=== PATIENT | female | born 1985 | race Caucasian/White ===

== ENCOUNTER 2018-06-09 14:10 | Outpatient (CLI) | payer OTHER ==
--- NOTE | 2018-06-09 15:30 | RAD ---
PA AND LATERAL CHEST: History: Bronchitis. Cough. FINDINGS: Cardiomediastinum is normal. The lungs are well expanded and clear. The bony thorax is normal. IMPRESSION: Normal exam. POS: [facility]
== END 2018-06-09 14:11 | disposition home or self-care (01) ==
LOC: SCSRAD 14:10
PROVIDERS: ATTEND Family Medicine
DX: J20.9 Acute bronchitis, unspecified (principal)
CPT/HCPCS: 71046

== ENCOUNTER 2018-08-06 08:22 | Outpatient (CLI) | payer OTHER ==
--- NOTE | 2018-08-06 09:31 | RAD ---
PA AND LATERAL CHEST: History: Persistent cough. Comparison: 06-09-18 FINDINGS: Heart size and mediastinum within normal limits. The lungs are clear of infiltrates. No bony findings . IMPRESSION: No active intrathoracic disease. POS: [facility]
== END 2018-08-06 08:23 | disposition home or self-care (01) ==
LOC: SCSRAD 08:22
PROVIDERS: ATTEND Family Medicine
DX: R05 Cough (principal)
CPT/HCPCS: 71046

== ENCOUNTER 2019-01-06 10:48 | Outpatient (CLI) | payer OTHER ==
--- NOTE | 2019-01-06 11:17 | RAD ---
TWO VIEWS CHEST: History: Bronchitis, cough. Date: 01-06-19 Comparison: 08-06-19 FINDINGS: PA and lateral chest demonstrate the lungs to be well aerated. No evidence of active intrathoracic di sease seen. No evidence of effusions, pneumonia, or pneumothorax seen. IMPRESSION: Unremarkable two views chest. POS: [facility]
== END 2019-01-06 10:49 | disposition home or self-care (01) ==
LOC: SCSRAD 10:48
PROVIDERS: ATTEND Family Medicine
DX: J40 Bronchitis, not specified as acute or chronic (principal)
CPT/HCPCS: 71046

== ENCOUNTER 2019-12-02 11:12 | Outpatient (CLI) | payer OTHER ==
--- NOTE | 2019-12-02 12:36 | RAD ---
PA AND LATERAL CHEST: Date: 12/02/2019 HISTORY: Cough and wheezing. COMPARISON: 01/06/19 study. FINDINGS: Heart size and mediastinum are within normal limits. Lungs are clear of infiltrates. No significant b norma findings. IMPRESSION: No active intrathoracic disease. POS: [facility]
== END 2019-12-02 11:13 | disposition home or self-care (01) ==
LOC: SCSRAD 11:12
PROVIDERS: ATTEND Family Medicine
DX: J40 Bronchitis, not specified as acute or chronic (principal)
CPT/HCPCS: 71046

== ENCOUNTER 2020-04-05 12:32 | Outpatient (CLI) | payer OTHER ==
--- NOTE | 2020-04-05 15:26 | MRI ---
BRAIN MRI WITH AND WITHOUT CONTRAST: 04/05/20 COMPARISON: None. HISTORY: Migraine with aura. TECHNIQUE: Multiplanar and multisequence MR imaging of the brain is provided with and without contrast. FINDINGS: The diffusion weighted imaging demonstrates no evidence for acute infarction. The axial gradient echo imaging demonstrates no evidence for intracranial hemorrhage. There is mild mucosal thickening involving the alveolar recess of bilateral maxillary sinuses. There is polypoid mucosal thickening within the alveolar recess on the right. There is minimal opacificatio n of the mastoid air cells on the left. Arterial flow voids at the axial level of the skull base appear grossly unremarkable on the T2 weight ed imaging. The postcontrast imaging demonstrates no acute findings. There is no abnormal enhancement noted within the brain parenchyma. IMPRESSION: No acute findings. POS: [facility]
== END 2020-04-05 12:33 | disposition home or self-care (01) ==
LOC: SCSMRI 12:32
PROVIDERS: ATTEND Psychiatry & Neurology Neurology
DX: G43.109 Migraine with aura, not intractable, without status migrainosus (principal)
CPT/HCPCS: 70553

== ENCOUNTER 2020-07-13 07:58 | Outpatient (CLI) | payer OTHER ==
--- NOTE | 2020-07-13 08:46 | ULT ---
EXAM: US Gallbladder RUQ CLINICAL HISTORY: Right upper quadrant pain. COMPARISON: None. FINDINGS: Pancreas: Head and proximal pancreatic body have a normal echotexture. Liver:Heterogeneous echotexture of liver which may be due to hepatic steatosis or hepatocellular dise ase. Subsequent limited evaluation for hepatic masses and intrahepatic biliary dilatation. Right hepatic lobe: 15 point cm Gallbladder: No sonographic evidence of cholelithiasis, gallbladder wall thickening or pericholecysti c fluid. Logan's sign:Negative Portal Vein: Patent. Appropriate directional flow Bile ducts: 0.47 cm common bile duct diameter Right kidney: No hydronephrosis. Right kidney measures 11.0 x 5.0 x 5.5 cm in length. IMPRESSION: 1. Heterogeneous echotexture of liver which may be due to hepatic steatosis or hepatocellular disease . There is concern for hepatic masses, abdomen MRI can be performed.
== END 2020-07-13 07:59 | disposition home or self-care (01) ==
LOC: SCSULT 07:58
PROVIDERS: ATTEND Family Medicine
DX: R10.11 Right upper quadrant pain (principal); R93.2 Abnormal findings on diagnostic imaging of liver and biliary tract
CPT/HCPCS: 76705

== ENCOUNTER 2021-09-10 12:06 | Outpatient (CLI) | payer OTHER | END 2021-09-10 12:07 | disposition home or self-care (01) | LOC: SCSRAD 12:06 | PROVIDERS: ATTEND Family Medicine | DX: M54.2 Cervicalgia (principal) | CPT/HCPCS: 72040 ==

== ENCOUNTER → 2021-10-03 | Day surgery (SDC) | payer OTHER ==
[2021-10-02 12:43] VITALS: BMI 37.4
[~2021-10-03] MED LIST: Lidocaine 1% PF 5 ML VIAL ONE; Sodium Bicarbonate 2.5 MEQ/5 ML VIAL ONE
[2021-10-03 13:38] VITALS: BP 124/69; TEMP 98.3
== END ==
LOC: ULT 12:23
PROVIDERS: ATTEND Family Medicine
PROC: 0G9H3ZX Drainage of Right Thyroid Gland Lobe, Percutaneous Approach, Diagnostic (ICD-10-PCS; principal; 2021-10-03)
DX: E04.1 Nontoxic single thyroid nodule (principal); Z79.899 Other long term (current) drug therapy; Z88.2 Allergy status to sulfonamides
CPT/HCPCS: 10005; 88173

== ENCOUNTER 2022-12-02 09:39 | Outpatient (CLI) | payer OTHER | END 2022-12-02 09:40 | disposition home or self-care (01) | LOC: SCSRAD 09:39 | PROVIDERS: ATTEND Family Medicine | DX: R05.3 Chronic cough (principal) | CPT/HCPCS: 71046 ==